=== PATIENT | female | born 1970 | race Hispanic/Latino ===

== ENCOUNTER 2022-11-21 08:36 | Outpatient (CLI) | payer OTHER | END 2022-11-21 08:37 | disposition home or self-care (01) | LOC: MRI 08:36 | PROVIDERS: ATTEND Nurse Practitioner Family | DX: M54.50 Low back pain, unspecified (principal); G89.29 Other chronic pain; M51.36 Other intervertebral disc degeneration, lumbar region; M51.37 Other intervertebral disc degeneration, lumbosacral region | CPT/HCPCS: 72158 ==

== ENCOUNTER 2023-08-29 12:19 | Outpatient (CLI) | payer OTHER | END 2023-08-29 12:20 | disposition home or self-care (01) | LOC: BICMRI 12:19 | DX: M54.2 Cervicalgia (principal); G89.29 Other chronic pain; M47.812 Spondylosis without myelopathy or radiculopathy, cervical region | CPT/HCPCS: 72141 ==